=== PATIENT | female | born 1970 | race Hispanic/Latino ===

== ENCOUNTER → 2023-02-07 | Outpatient (CLI) | payer OTHER | END | disposition home or self-care (01) | LOC: RAH 08:31 | PROVIDERS: ATTEND Internal Medicine Gastroenterology | DX: K21.9 Gastro-esophageal reflux disease without esophagitis (principal); R93.3 Abnormal findings on diagnostic imaging of other parts of digestive tract | CPT/HCPCS: 74240 ==

== ENCOUNTER → 2023-04-25 | Outpatient (CLI) | payer OTHER | END | disposition home or self-care (01) | LOC: SHCH 08:07 | PROVIDERS: ATTEND Internal Medicine Cardiovascular Disease | DX: I87.2 Venous insufficiency (chronic) (peripheral) (principal); I87.1 Compression of vein | CPT/HCPCS: 93970 ==